=== PATIENT | female | born 1980 | race Hispanic/Latino ===

== ENCOUNTER → 2025-02-05 | Day surgery (SDC) | payer BC ==
[~2025-02-05] MED LIST: ACETAMINOPHEN 1000 MG/100 ML 100 ML IV ONE; BUPROPION HCL150 MG PO; CBD GUMMY PO; DEXAMETHASONE SOD PHOS INJ 4 MG/ML SDV ONE; FENTANYL CITRATE/PF 100MCG/2 ML INJ ONE; FLONASE ALLERG9.9 ML INH; LIDOCAINE HCL 2% LOCAL INJ 5 ML SDV VIAL INJ ONE; LOSARTAN-HCTZ1 EAC1 PO; MIDAZOLAM HCL 2 MG/2 ML VIAL ONE; NP THYROID60 MG PO; ONDANSETRON HCL INJ 2MG/ML 2ML 2 MG/ML VIAL ONE; PROPOFOL IV EMULSION 10 MG/ML 20 ML VIAL ONE; ROCURONIUM BROMIDE 1 ML IV ONE; ROSUVASTATIN CAL5 MG PO; SPIRONOLACTONE25 MG PO; SUGAMMADEX SODIUM 200 MG/2 ML VIAL IV ONE; ZYRTEC10 MG PO
[2025-02-05] MEDS: LACTATED RINGER'S 1,000 ML ONE (06:55)
[2025-02-05 09:35] VITALS: BP 112/76; PULSE 74; RESP 18; O2SAT 98
== END | disposition home or self-care (01) ==
LOC: OR 05:51 → EDBD 08:30
PROVIDERS: ATTEND Otolaryngology Otolaryngology/Facial Plastic Surgery
DX: J34.2 Deviated nasal septum (principal); J34.89 Other specified disorders of nose and nasal sinuses; I10 Essential (primary) hypertension; E78.5 Hyperlipidemia, unspecified; E03.9 Hypothyroidism, unspecified; F32.A Depression, unspecified; K57.90 Diverticulosis of intestine, part unspecified, without perforation or abscess without bleeding; Z79.899 Other long term (current) drug therapy
CPT/HCPCS: 30520; 81025; 88304; 88311; 93005; J0131; J1100; J2003; J2250; J2405; J2704; J3010; J7121; 88300